=== PATIENT | male | born 1965 | race Caucasian/White ===

== ENCOUNTER → 2020-12-26 | Outpatient (CLI) | payer OTHER ==
--- NOTE | 2020-12-26 14:39 | RAD ---
EXAM: Left knee, 3 views. HISTORY: Pain. COMPARISON: None. FINDINGS: 3 views of the left knee are obtained. There is mild medial compartment joint space narrowi ng and moderate medial compartment spurring. There is mild lateral and patellofemoral compartment spu rring. There is enthesopathy along the superior patella. There is no joint effusion. IMPRESSION: Moderate medial compartment and mild lateral and patellofemoral compartment osteoarthriti s of the left knee. Electronically signed by: Brunilda Salinas MD (12/26/2020 2:36 PM) [id number]
== END ==
LOC: RAD 14:17
PROVIDERS: ATTEND Physician Assistant Medical
DX: M17.12 Unilateral primary osteoarthritis, left knee (principal)
CPT/HCPCS: 73562